=== PATIENT | male | born 1975 | race African-American/Black ===

== ENCOUNTER 2019-11-23 09:42 | Emergency (ER) | payer MEDICAID ==
[~2019-11-23] VITALS: Ht 185.4 cm; Wt 105.0 kg
[~2019-11-23 09:42] MED LIST: NO HOME MEDS
[2019-11-23 10:41] VITALS: BP 146/93
[2019-11-23] MEDS ORDERED: ondansetron 4mg rapidly disintigrating tab PO ONE (11:05)
[2019-11-23] MEDS ORDERED: sulfamethoxazole/trimethoprim DS (800/160mg) tablet PO ONE (11:05)
[2019-11-23] MEDS ORDERED: SULF1TAB49 PO (11:14)
== END 2019-11-23 11:30 | disposition home or self-care (01) ==
LOC: ER 09:43
DX: L02.416 Cutaneous abscess of left lower limb (principal); Z79.2 Long term (current) use of antibiotics
CPT/HCPCS: 10060; 99283

== ENCOUNTER 2023-02-05 06:50 | Inpatient (IN) | payer MEDICAID ==
[~2023-02-05] VITALS: Ht 185.4 cm; Wt 102.0 kg
[2023-02-05] VITALS (18 sets, daily range): BP systolic 123–144; BP diastolic 71–95; PULSE 62–87; RESP 12–20; TEMP 97.6–98.4; O2SAT 98–100
[2023-02-05] MEDS ORDERED: ceFAZolin/D5W- 1GM premix 50 ML IV ONE (08:00)
[2023-02-05] MEDS ORDERED: HYDROcodone/acetaminophen 5mg/325mg tablet PO PRN (08:20)
[2023-02-05] MEDS ORDERED: morphine 2 MG/ML inj. syringe IV PRN ×3 (08:20→14:50)
[2023-02-05] MEDS ORDERED: ondansetron/PF 4mg/2ml inj IV PRN ×2 (08:20→14:50)
[2023-02-05] MEDS ORDERED: magnesium hydroxide 30ml (MOM) UD suspension PO PRN (08:20)
[2023-02-05] MEDS ORDERED: acetaminophen 325mg tablet PO PRN ×2 (08:20)
[2023-02-05] MEDS ORDERED: mag hydrox/Alum hydrox/simeth 30ml oral suspension PO PRN (08:20)
[2023-02-05 09:18] LABS: BASOPHILS # (AUTO) 0.1 X10'3 (0-0.2); BASOPHILS % (AUTO) 0.8 % (0-1); EOSINOPHILS # (AUTO) 0.2 X10'3 (0-0.9); EOSINOPHILS % (AUTO) 1.8 % (0-6); HEMATOCRIT 38.1 % (42.0-52.0); HEMOGLOBIN 12.7 g/dl (14.0-17.9); LYMPHOCYTES # (AUTO) 1.9 X10'3 (1.1-4.8); LYMPHOCYTES % (AUTO) 20.9 % (21-51); MEAN CORPUSCULAR HEMOGLOBIN 26.2 PG (27.0-31.0); MEAN CORPUSCULAR HGB CONC 33.2 g/dL (33.0-36.5); MEAN CORPUSCULAR VOLUME 78.9 FL (78-98); MEAN PLATELET VOLUME 7.3 FL (7.4-10.4); MONOCYTES # (AUTO) 0.5 X10'3 (0-0.9); MONOCYTES % (AUTO) 6.1 % (2-12); NEUTROPHILS # (AUTO) 6.3 X10'3 (1.8-7.7); NEUTROPHILS % (AUTO) 70.4 % (42-75); PLATELET COUNT 462 X10'3 (140-440); RED BLOOD COUNT 4.83 X10'6 (4.70-6.10); RED CELL DISTRIBUTION WIDTH 14.3 % (11.5-14.5); WHITE BLOOD COUNT 8.9 X10'3 (4.5-11.0)
[2023-02-05 09:45] LABS: ALANINE AMINOTRANSFERASE 19 U/L (12-78); ALBUMIN 3.2 G/DL (3.4-5.0); ALBUMIN/GLOBULIN RATIO 0.7 (1.1-1.5); ALKALINE PHOSPHATASE 85 IU/L (46-116); ANION GAP 9 (8-16); ASPARTATE AMINO TRANSFERASE 11 U/L (10-37); BILIRUBIN,TOTAL 0.3 MG/DL (0.1-1.0); BLOOD UREA NITROGEN 9 MG/DL (7-18); BUN/CREATININE RATIO 9.2 (10.0-20.0); CALCIUM 9.3 MG/DL (8.5-10.1); CHLORIDE 102 MMOL/L (99-107); CREATININE 0.98 MG/DL (0.60-1.10); GLUCOSE 85 MG/DL (70-104); POTASSIUM 4.6 MMOL/L (3.5-5.1); SODIUM 139 MMOL/L (135-145); TOTAL CARBON DIOXIDE 28.2 MMOL/L (24-32); TOTAL PROTEIN 8.1 G/DL (6.4-8.2); eCRCL 103 ML/MIN; eGFR > 90 ML/MIN
[2023-02-05] MEDS ORDERED: NO HOME MEDS (11:41)
[2023-02-05] MEDS: dextrose 5%-1/2 normal saline 1,000 ML IV SCH ×2 (11:50→22:33)
[2023-02-05] MEDS ORDERED: BUPIVAcaine 0.5% inj/PF 30 ML ONE (13:54)
[2023-02-05] MEDS ORDERED: fentaNYL/PF 50MCG/1 ML 2ML syringe ONE ×2 (13:56→14:07)
[2023-02-05] MEDS ORDERED: midazolam 1 mg/ML 2ml injection ONE (13:56)
[2023-02-05] MEDS ORDERED: ketamine 50mg/5ml syringe ONE (13:57)
[2023-02-05] MEDS ORDERED: sevoflurane 250ml liquid IH ONE (14:00)
[2023-02-05] MEDS ORDERED: vancomycin 1,000mg inj ONE (14:13)
[2023-02-05] MEDS ORDERED: propofol inj 20 ML IV ONE (14:21)
[2023-02-05] MEDS ORDERED: ondansetron/PF 4mg/2ml inj ONE (14:21)
[2023-02-05] MEDS ORDERED: meperidine/PF 25mg/ml syringe ONE (14:26)
[2023-02-05] MEDS: ceFAZolin/D5W- 1GM premix 50 ML IV SCH ×3 (14:40→22:33)
[2023-02-05] MEDS ORDERED: ringers solution, lacted 1,000 ML IV SCH (14:50)
[2023-02-05] MEDS ORDERED: proCHLORperazine 10 MG/2 ml inj IV PRN (14:50)
[2023-02-05] MEDS ORDERED: morphine 4 MG/ML inj SYRINge IV PRN (14:50)
[2023-02-05] MEDS ORDERED: meperidine/PF 25mg/ml syringe IV PRN ×3 (14:50)
[2023-02-05] MEDS: docusate sod 100mg capsule PO SCH (21:05)
[2023-02-06 02:00] VITALS: BP 124/75; PULSE 74; RESP 14; TEMP 97.7; O2SAT 100
[2023-02-06] MEDS: dextrose 5%-1/2 normal saline 1,000 ML IV SCH ×2 (04:20→11:30)
[2023-02-06] MEDS: HYDROcodone/acetaminophen 10/325mg tab PO PRN ×3 (05:35→18:06)
[2023-02-06 06:33] LABS: BASOPHILS % (AUTO) 0.4 % (0-1); EOSINOPHILS # (AUTO) 0.3 X10'3 (0-0.9); EOSINOPHILS % (AUTO) 2.6 % (0-6); HEMATOCRIT 36.8 % (42.0-52.0); HEMOGLOBIN 11.9 g/dl (14.0-17.9); LYMPHOCYTES # (AUTO) 2.8 X10'3 (1.1-4.8); MEAN CORPUSCULAR HEMOGLOBIN 25.8 PG (27.0-31.0); MEAN CORPUSCULAR HGB CONC 32.3 g/dL (33.0-36.5); MEAN CORPUSCULAR VOLUME 79.8 FL (78-98); MEAN PLATELET VOLUME 7.5 FL (7.4-10.4); MONOCYTES # (AUTO) 0.8 X10'3 (0-0.9); MONOCYTES % (AUTO) 6.7 % (2-12); NEUTROPHILS # (AUTO) 7.6 X10'3 (1.8-7.7); NEUTROPHILS % (AUTO) 66.3 % (42-75); PLATELET COUNT 435 X10'3 (140-440); RED BLOOD COUNT 4.62 X10'6 (4.70-6.10); RED CELL DISTRIBUTION WIDTH 14.5 % (11.5-14.5); WHITE BLOOD COUNT 11.5 X10'3 (4.5-11.0)
[2023-02-06 06:54] LABS: ALBUMIN 2.8 G/DL (3.4-5.0); ANION GAP 9 (8-16); BLOOD UREA NITROGEN 9 MG/DL (7-18); BUN/CREATININE RATIO 7.9 (10.0-20.0); CALCIUM 8.9 MG/DL (8.5-10.1); CHLORIDE 104 MMOL/L (99-107); CREATININE 1.14 MG/DL (0.60-1.10); GLUCOSE 143 MG/DL (70-104); POTASSIUM 3.7 MMOL/L (3.5-5.1); SODIUM 139 MMOL/L (135-145); TOTAL CARBON DIOXIDE 26.4 MMOL/L (24-32); eCRCL 89 ML/MIN; eGFR 83 ML/MIN
[2023-02-06 08:00] VITALS: RESP 16; O2SAT 100
[2023-02-06] MEDS: docusate sod 100mg capsule PO SCH ×2 (08:00→19:30)
[2023-02-06] MEDS: ceFAZolin/D5W- 1GM premix 50 ML IV SCH (08:34)
[2023-02-06 10:00] VITALS: BP 136/88; PULSE 76; RESP 16; TEMP 97.7; O2SAT 100
[2023-02-06] MEDS ORDERED: vancomycin/NS 1 GM ADD-VANTAGE 250 ML IV SCH (10:10)
[2023-02-06] MEDS: VANCOmycin 1250MG/NS 250ml Bag 250 ML IV SCH ×2 (11:17→23:33)
[2023-02-06 18:00] VITALS: BP 141/97; PULSE 87; RESP 15; TEMP 98.2; O2SAT 100
[2023-02-06 20:00] VITALS: RESP 15; O2SAT 100
[2023-02-07] MEDS: dextrose 5%-1/2 normal saline 1,000 ML IV SCH (01:25)
[2023-02-07 06:30] VITALS: BP 137/76; PULSE 78; RESP 17; TEMP 97.3; O2SAT 96
[2023-02-07 06:45] LABS: BASOPHILS % (AUTO) 0.5 % (0-1); EOSINOPHILS # (AUTO) 0.4 X10'3 (0-0.9); EOSINOPHILS % (AUTO) 4.3 % (0-6); HEMATOCRIT 36.9 % (42.0-52.0); HEMOGLOBIN 11.8 g/dl (14.0-17.9); LYMPHOCYTES # (AUTO) 2.6 X10'3 (1.1-4.8); MEAN CORPUSCULAR HEMOGLOBIN 25.5 PG (27.0-31.0); MEAN CORPUSCULAR HGB CONC 31.8 g/dL (33.0-36.5); MEAN CORPUSCULAR VOLUME 80.1 FL (78-98); MEAN PLATELET VOLUME 7.7 FL (7.4-10.4); MONOCYTES # (AUTO) 0.8 X10'3 (0-0.9); MONOCYTES % (AUTO) 8.2 % (2-12); NEUTROPHILS # (AUTO) 5.6 X10'3 (1.8-7.7); PLATELET COUNT 449 X10'3 (140-440); RED BLOOD COUNT 4.61 X10'6 (4.70-6.10); RED CELL DISTRIBUTION WIDTH 14.4 % (11.5-14.5); WHITE BLOOD COUNT 9.4 X10'3 (4.5-11.0)
[2023-02-07 07:09] LABS: ALBUMIN 2.8 G/DL (3.4-5.0); ANION GAP 9 (8-16); BLOOD UREA NITROGEN 7 MG/DL (7-18); BUN/CREATININE RATIO 6.6 (10.0-20.0); CALCIUM 9.2 MG/DL (8.5-10.1); CHLORIDE 104 MMOL/L (99-107); CREATININE 1.06 MG/DL (0.60-1.10); GLUCOSE 102 MG/DL (70-104); POTASSIUM 3.7 MMOL/L (3.5-5.1); SODIUM 141 MMOL/L (135-145); TOTAL CARBON DIOXIDE 27.8 MMOL/L (24-32); eCRCL 95 ML/MIN; eGFR 90 ML/MIN
[2023-02-07] MEDS: docusate sod 100mg capsule PO SCH (07:31)
[2023-02-07] MEDS: HYDROcodone/acetaminophen 10/325mg tab PO PRN (07:31)
[2023-02-07 11:00] VITALS: BP 139/78; PULSE 18; RESP 72; TEMP 97.3; O2SAT 98
[2023-02-07] MEDS: VANCOmycin 1250MG/NS 250ml Bag 250 ML IV SCH (11:33)
[2023-02-07] MEDS ORDERED: HYDR-3965 PO (17:30)
[2023-02-07] MEDS ORDERED: VANCOMYCIN LEVEL IV ONE (22:30)
== END 2023-02-07 17:04 | disposition home health service (06) | DRG 316 ==
LOC: ER 06:51 → ED HOLD 08:20 → ORTHO 4S 13:21
PROVIDERS: ADMIT Internal Medicine; ATTEND Internal Medicine
PROC: 0LB70ZZ Excision of Right Hand Tendon, Open Approach (ICD-10-PCS; principal; 2023-02-05 14:00)
PROC: 05HY33Z Insertion of Infusion Device into Upper Vein, Percutaneous Approach (ICD-10-PCS; 2023-02-07)
DX: M86.8X4 Other osteomyelitis, hand (principal); F19.10 Other psychoactive substance abuse, uncomplicated; M65.841 Other synovitis and tenosynovitis, right hand; S62.630A Displaced fracture of distal phalanx of right index finger, initial encounter for closed fracture; L03.011 Cellulitis of right finger; X58.XXXA Exposure to other specified factors, initial encounter; Y93.89 Activity, other specified; Y92.89 Other specified places as the place of occurrence of the external cause; Y99.8 Other external cause status; Z87.891 Personal history of nicotine dependence
CPT/HCPCS: 36415; 73140; 80048; 80053; 82948; 83605; 85025; 85651; 87040; 87070; 87075; 87077; 87081; 87102; 87186; 99285; A4333; A4618; A6222; A6223; A6446; A6449; A7000; G0378; J0690; J2175; J2250; J2405; J2704; J3010; J3370; J3490; S0020

== ENCOUNTER 2024-08-11 08:47 | Emergency (ER) | payer MEDICAID ==
[~2024-08-11] VITALS: Ht 182.9 cm; Wt 93.2 kg
[2024-08-11] MEDS ORDERED: dexamethasone sod phosphate 10mg/ml inj PO STA (09:27)
[2024-08-11] MEDS: DEXAMETHASONE 6 MG TABLET PO STA (09:57)
[2024-08-11] MEDS: ketorolac trometh 30MG/ML vial 30 MG/ML VIAL IM ONE (09:57)
[2024-08-11] MEDS: dexamethasone 4mg tablet PO STA (09:57)
[2024-08-11 09:58] LABS: STREP A SCREEN POSITIVE (Neg)
[2024-08-11] MEDS ORDERED: AMOX-580 PO (10:33)
[2024-08-11] MEDS ORDERED: HYDR-3965 PO (10:33)
[2024-08-11] MEDS ORDERED: LIDO15SO9 PO (10:33)
[2024-08-11 10:40] VITALS: BP 134/86; PULSE 80; RESP 18; TEMP 98.8; O2SAT 98
== END 2024-08-11 10:43 | disposition home or self-care (01) ==
LOC: ER 08:48
DX: J02.9 Acute pharyngitis, unspecified (principal); F12.90 Cannabis use, unspecified, uncomplicated
CPT/HCPCS: 87880; 96372; 99283; J1885; J8540